=== PATIENT | female | born 1995 | race Caucasian/White ===

== ENCOUNTER 2019-01-27 16:24 | Emergency (ER) | payer OTHER ==
[~2019-01-27] VITALS: Ht 149.9 cm; Wt 65.5 kg
[2019-01-27 16:30] VITALS: Ht 149.9 cm; Wt 65.5 kg
--- NOTE | 2019-01-27 16:42 | ERD ---
ER Documentation Chief Complaint Chief Complaint pt is 16 weeks , c/o cramping with n/v x 1 day HPI 23-year-old female, 16 weeks , presents to the emergency department, complaining of 1 day with intermittent pelvic cramping, associated with nausea and vomiting. ROS All systems reviewed and are negative except as per history of present illness. Medications Home Meds Active Scripts Acetaminophen* (Tylenol*) 325 Mg Tablet, 2 TAB PO Q6 PRN for PAIN AND OR ELEVAT ED TEMP, #20 TAB Prov:LUIS M MOORE MD 01/27/19 Cephalexin* (Keflex*) 500 Mg Capsule, 500 MG PO QID for 7 Days, CAP Prov:LUIS M MOORE MD 01/27/19 Allergies Allergies: Coded Allergies: No Known Allergy (Unverified , 01/27/19) FmHx Family History: No diabetes, No coronary disease Physical Exam Vitals Vital Signs Date Temp Pulse Resp B/P (MAP) Pulse Ox O2 O2 Flow FiO2 Time Delivery Rate 01/27/19 97.9 81 16 99/62 (74) 99 Room Air 20:02 01/27/19 97.9 90 16 103/63 99 16:30 (76) Physical Exam Const: No acute distress Head: Atraumatic Eyes: Normal Conjunctiva ENT: Normal External Ears, Nose and Mouth. Neck: Full range of motion. No meningismus. Resp: Clear to auscultation bilaterally Cardio: Regular rate and rhythm, no murmurs Abd: Soft, non tender, non distended. Normal bowel sounds Skin: No petechiae or rashes Back: No midline or flank tenderness Ext: No cyanosis, or edema Neur: Awake and alert Psych: Normal Mood and Affect Result Diagram: 01/27/19 1713 01/27/19 1713 Results 24 hrs Laboratory Tests Test 01/27/19 17:13 White Blood Count 10.7 10^3/ul Red Blood Count 4.05 10^6/ul Hemoglobin 11.5 g/dl Hematocrit 34.7 % Mean Corpuscular Volume 85.7 fl Mean Corpuscular Hemoglobin 28.4 pg Mean Corpuscular Hemoglobin Concent 33.1 g/dl Red Cell Distribution Width 13.7 % Platelet Count 251 10^3/UL Mean Platelet Volume 10.3 fl Immature Granulocytes % 0.500 % Neutrophils % 68.3 % Lymphocytes % 22.0 % Monocytes % 7.7 % Eosinophils % 0.8 % Basophils % 0.7 % Nucleated Red Blood Cells % 0.0 /100WBC Immature Granulocytes # 0.050 10^3/ul Neutrophils # 7.3 10^3/ul Lymphocytes # 2.4 10^3/ul Monocytes # 0.8 10^3/ul Eosinophils # 0.1 10^3/ul Basophils # 0.1 10^3/ul Nucleated Red Blood Cells # 0.0 10^3/ul Urine Color YELLOW Urine Clarity SLIGHTLY CLOUDY Urine pH 7.0 Urine Specific [place] 1.019 Urine Ketones NEGATIVE mg/dL Urine Nitrite NEGATIVE mg/dL Urine Bilirubin NEGATIVE mg/dL Urine Urobilinogen NEGATIVE mg/dL Urine Leukocyte Esterase TRACE Taras/ul Urine Microscopic RBC 1 /HPF Urine Microscopic WBC 8 /HPF Urine Squamous Epithelial Cells MODERATE /HPF Urine Bacteria FEW /HPF Urine Mucus FEW /HPF Urine Hemoglobin NEGATIVE mg/dL Urine Glucose NEGATIVE mg/dL Urine Total Protein NEGATIVE mg/dl Sodium Level 140 mmol/L Potassium Level 4.0 mmol/L Chloride Level 110 mmol/L Carbon Dioxide Level 22 mmol/L Anion Gap 8 Blood Urea Nitrogen 3 mg/dl Creatinine 0.36 mg/dl Est Glomerular Filtrat Rate mL/min > 60 mL/min Glucose Level 83 mg/dl Calcium Level 9.0 mg/dl Lipase 87 U/L Current Medications Medications Dose Sig/Jake Start Time Status Last (Trade) Ordered Route PRN Stop Time Admin Dose Reason Admin Sodium 1,000 ml @ Q1H STAT 01/27/19 DC 01/27/19 Chloride 1,000 mls/hr IV 17:02 17:36 01/27/19 18:01 Ondansetron 4 mg ONCE STAT 01/27/19 DC 01/27/19 HCl (Zofran IV 17:02 17:36 Inj) 01/27/19 17:08 Morphine 1 mg ONCE STAT 01/27/19 DC 01/27/19 Sulfate IV 17:02 17:36 (morphine) 01/27/19 17:08 650 mg ONCE ONCE 01/27/19 DC 01/27/19 Acetaminophen PO 17:30 17:36 (Tylenol 01/27/19 17:31 Tab) Patient: KARON VILLEGAS : 1995 Age: 23 Sex: F MR #: [id number] DOS: 01/27/19 1702 Ordering MD: LUIS M MOORE MD Location: [facility] Room/Bed: PROCEDURE: US OB CLINICAL INDICATION: . Pelvic pain, cramping TECHNIQUE: Multiple transabdominal sonographic images of the pelvis and gravid uterus were obtained. The images were reviewed on a PACS workstation. COMPARISON: No prior studies are available for comparison. FINDINGS: Cervix: Length: 4.25 cm. Closed and competent. Gestation: Single live intrauterine gestation. Cardiac activity: 157 beats per minute. Presentation: Transverse with head toward maternal left Placenta: Location: Fundal Appearance: No previa or abruption. Amniotic Fluid: Maximum vertical pocket equals 4.5 cm. Measurements: BPD = 3.66 cm, 17 weeks 1 day HC = 13.01 cm, 16 weeks 5 days AC = 11.3 cm, 17 weeks 1 day FL = 2.28 cm, 16 weeks 6 days Gestational Age: AUA estimated gestational age: 17 weeks 0 days LMP estimated gestational age: 16 weeks 2 days AUA estimated date of delivery: 07/07/2019 The EFW = 175.53 g, 84.6 %ile based on LMP age. Bilateral maternal adnexal regions are unremarkable. The maternal left ovary is unremarkable. Color flow and spectral analysis demonstrates arterial flow in the maternal left ovary. Maternal right ovary is not seen. IMPRESSION: 1. Single live intrauterine gestation of 17 weeks 0 days by ultrasound criteria. 2. Estimated date of delivery of 07/07/2019. 3. No abnormality identified. Microbiology URINE CULTURE Preliminary Organism 1 GRAM VARIABLE RODS COLONY COUNT >100,000 CFU/ml Organism 2 MIXED GRAM POSITIVE ORGANISMS COLONY COUNT 50,000 - 60,000 CFU/ml Procedures/MDM Vital signs stable, Physical exam unremarkable. Differential diagnosis include but not limited to: UTI, threatening , incomplete versus complete , ectopic , physiologic implantation bleeding, molar . Physical examination and clinical presentation most likely consistent with UTI. During the ED course the patient remained hemodynamically stable and asymptomat ic. Results and clinical impression discussed with patient who agrees with management. The patient is stable to be treated outpatient and will be discharged home with close monitoring and follow-up in 2 days with her primary physician. The patient was instructed regarding the outcomes and the potential complications like severe bleeding and . If the patient presents severe bleeding or pain, she was instructed to return to the hospital immediately. Disclaimer: Inadvertent spelling and grammatical errors are likely due to EHR/dictation software use and do not reflect on the overall quality of patient care. Also, please note that the electronic time recorded on this note does not necessarily reflect the actual time of the patient encounter. Departure Diagnosis: Primary Impression: 16 weeks gestation of Additional Impression: UTI (urinary tract infection) Condition: Stable Additional Instructions: Muchas hamilton por [facility] para parker servicio. Esperamos que en aprker visita a la nakia de emergencia parker problema medico haya sido solucionado y que se sienta mucho mejor. Para estar seguros que parker mejoria sigue en proceso, le pedimos el favor de hacer abhi rena de seguimiento medico con parker doctor primario en los proximos 2-4 weldon. Lleve con usted estos documentos y las medicinas recetadas. Si kenrick sintomas empeoran, NO SE ESPERE, por favor regrese a nakia de emergencia INMEDIATAMENTE. En sher que usted no tenga un mdico de atencin primaria: Llame al mdico o clnica comunitaria de referencia que aparece abajo tiesha las horas de consultorio para hacer abhi rena para que le vean. CLINICAS: [facility] [phone] [facility] [phone] [facility] [phone] [facility] [phone] [facility] [phone] [facility]. [phone] MD Jan 27, 2019 16:42
[2019-01-27] MEDS ORDERED: morphine 2 MG INJ IV STA (17:02)
[2019-01-27] MEDS ORDERED: SOD CHLORIDE 0.9% 1,000 ML IV STA (17:02)
[2019-01-27] MEDS ORDERED: ONDANSETRON 4 MG INJ IV STA (17:02)
[2019-01-27] MEDS ORDERED: ACETAMINOPHEN 325 MG TAB PO ONE (17:30)
[2019-01-27] MEDS ORDERED: ACET325T33 PO (19:35)
[2019-01-27] MEDS ORDERED: CEPH-443 PO (19:35)
[2019-01-27 20:02] VITALS: BP 99/62; PULSE 81; RESP 16
[2019-01-30] MEDS ORDERED: METO10TA92 PO (03:14)
[2019-01-30] MEDS ORDERED: PREN-93 PO (03:14)
[2019-01-30] MEDS ORDERED: ACET500C5 PO (03:15)
== END 2019-01-27 20:03 | disposition home or self-care (01) ==
LOC: FTE 16:24
DX: O23.42 Unspecified infection of urinary tract in pregnancy, second trimester (principal); Z3A.17 17 weeks gestation of pregnancy
CPT/HCPCS: 36415; 76805; 80048; 81001; 83690; 85025; 87086; 96361; 96374; 96375; J2270; J2405; J7030; Z7502; Z7610

== ENCOUNTER 2019-01-30 00:16 | Emergency (ER) | payer OTHER ==
[~2019-01-30] VITALS: Ht 149.9 cm; Wt 65.0 kg
[~2019-01-30 00:16] MED LIST: ACET325T33 PO; ACET500C5 PO; CEPH-443 PO; METO10TA92 PO; PREN-93 PO
[2019-01-30 00:19] VITALS: Ht 149.9 cm; Wt 65.0 kg
[2019-01-30] MEDS ORDERED: ACETAMINOPHEN 500 MG TAB PO STA (01:05)
--- NOTE | 2019-01-30 01:05 | ERD ---
ER Documentation Chief Complaint Chief Complaint abdominal pain/cramps x 1 hour, states 15 weeks , denies vb HPI This is a 23-year-old female who presents here in the emergency department with complaints of pelvic pain that started yesterday. Stated that she vomited multiple times with nonbilious and nonbloody emesis in the last 24 hours. LMP: 09/28/2017. BRUCE: 07/12/2019. M1. Denies headache, head injury, loss of consciousness, dizziness, neck pain, neck stiffness, throat pain, difficulty swallowing, difficulty breathing lying flat, shoulder pain, chest pain, back pain, abdominal pain, nausea, constipation, diarrhea, urinary symptoms, or possibility being , loss of bowel and bladder control, trauma, injury, falls, difficulty walking due to pain, numbness or tingling sensation, calf pain, recent travel, recent major surgery in the last 3 weeks, calf pain, recent long travel, recent exposure to any illness, recent antibiotic use in the last 3 months, fever, chills, seizures. Past medical history: Denies. Medication: vitamins. Surgical history: Denies. Social: Denies smoking, use of alcoholic beverages, use of illegal drugs. ROS All systems reviewed and are negative except as per history of present illness. Medications Home Meds Active Scripts Acetaminophen* (Tylophen*) 500 Mg Capsule, 1 CAP PO Q6H PRN for PAIN AND OR ELEVATED TEMP, #20 CAP Prov:RA CHILDERS 01/30/19 Vit No.124/Iron/FA ( Vitamin Tablet) 1 Each Tablet, 1 EACH PO DAILY, #30 TAB Prov:RA CHILDERS 01/30/19 Metoclopramide* (Reglan*) 10 Mg Tablet, 10 MG PO Q6 PRN for NAUSEA AND/OR VOMITING, #20 TAB Prov:RA CHILDERS 01/30/19 Acetaminophen* (Tylenol*) 325 Mg Tablet, 2 TAB PO Q6 PRN for PAIN AND OR ELEVATED TEMP, #20 TAB Prov:LUIS M MOORE MD 01/27/19 Cephalexin* (Keflex*) 500 Mg Capsule, 500 MG PO QID for 7 Days, CAP Prov:LUIS M MOORE MD 01/27/19 Allergies Allergies: Coded Allergies: No Known Allergy (Unverified , 7/26/19) PMhx/Soc Medical and Surgical Hx: pt denies Medical Hx, pt denies Surgical Hx History of Surgery: No Anesthesia Reaction: No Hx Neurological Disorder: No Hx Respiratory Disorders: No Hx Cardiac Disorders: No Hx Psychiatric Problems: No Hx Miscellaneous Medical Probl: No Hx Alcohol Use: No Hx Substance Use: No Hx Tobacco Use: No Smoking Status: Never smoker Physical Exam Vitals Physical Exam Const: No acute distress Head: Atraumatic Eyes: Normal Conjunctiva. ENT: Normal External Ears, Nose and Mouth. Neck: Full range of motion. No meningismus. Resp: Clear to auscultation bilaterally Cardio: Regular rate and rhythm, no murmurs Abd: Soft, non tender, non distended. Normal bowel sounds. Negative Rdz sign. Negative Jayde sign (heel jar test). Negative psoas sign. Negative Rovsing sign. Able to jump 10 times without developing lower abdominal pain. No CVA tenderness. Ambulatory with steady gait and without pain to abdomen. Skin: No petechiae or rashes. Color appears normal for ethnicity. No skin tenting. No signs of severe dehydration. Back: No midline or flank tenderness Ext: No cyanosis, or edema Neur: Awake and alert. No neurological deficits. Psych: Normal Mood and Affect Results 24 hrs Laboratory Tests Test 01/30/19 00:24 01/30/19 01:29 Urine Color YELLOW Urine Clarity CLOUDY Urine pH 7.0 Urine Specific [place] 1.013 Urine Ketones NEGATIVE mg/dL Urine Nitrite NEGATIVE mg/dL Urine Bilirubin NEGATIVE mg/dL Urine Urobilinogen NEGATIVE mg/dL Urine Leukocyte Esterase NEGATIVE Taras/ul Urine Microscopic RBC 1 /HPF Urine Microscopic WBC 3 /HPF Urine Squamous Epithelial Cells FEW /HPF Urine Amorphous Crystals FEW /HPF Urine Hemoglobin NEGATIVE mg/dL Urine Glucose NEGATIVE mg/dL Urine Total Protein NEGATIVE mg/dl White Blood Count 10.5 10^3/ul Red Blood Count 4.28 10^6/ul Hemoglobin 12.2 g/dl Hematocrit 36.7 % Mean Corpuscular Volume 85.7 fl Mean Corpuscular Hemoglobin 28.5 pg Mean Corpuscular Hemoglobin Concent 33.2 g/dl Red Cell Distribution Width 13.8 % Platelet Count 271 10^3/UL Mean Platelet Volume 11.0 fl Immature Granulocytes % 0.400 % Neutrophils % 58.0 % Lymphocytes % 30.3 % Monocytes % 9.3 % Eosinophils % 1.4 % Basophils % 0.6 % Nucleated Red Blood Cells % 0.0 /100WBC Immature Granulocytes # 0.040 10^3/ul Neutrophils # 6.1 10^3/ul Lymphocytes # 3.2 10^3/ul Monocytes # 1.0 10^3/ul Eosinophils # 0.2 10^3/ul Basophils # 0.1 10^3/ul Nucleated Red Blood Cells # 0.0 10^3/ul Sodium Level 138 mmol/L Potassium Level 3.8 mmol/L Chloride Level 105 mmol/L Carbon Dioxide Level 25 mmol/L Anion Gap 8 Blood Urea Nitrogen 6 mg/dl Creatinine 0.42 mg/dl Est Glomerular Filtrat Rate mL/min > 60 mL/min Glucose Level 81 mg/dl Calcium Level 10.0 mg/dl Total Bilirubin 0.3 mg/dl Direct Bilirubin 0.00 mg/dl Indirect Bilirubin 0.3 mg/dl Aspartate Amino Transf (AST/SGOT) 33 IU/L Alanine Aminotransferase (ALT/SGPT) 17 IU/L Alkaline Phosphatase 96 IU/L Total Protein 7.4 g/dl Albumin 3.8 g/dl Globulin 3.60 g/dl Albumin/Globulin Ratio 1.05 Amylase Level 88 U/L Lipase 67 U/L Beta HCG, Quantitative 89608.0 mIU/ml Current Medications Medications Dose Sig/Jake Start Time Status Last (Trade) Ordered Route PRN Stop Time Admin Dose Reason Admin Sodium 1,000 ml @ Q1H ONCE 01/30/19 DC 01/30/19 Chloride 1,000 mls/hr IV 01:30 01:49 01/30/19 02:29 10 mg ONCE ONCE 01/30/19 DC 01/30/19 Metoclopramid IV 01:30 01:49 e HCl 01/30/19 01:31 (Reglan) 500 mg ONCE STAT 01/30/19 DC 01/30/19 Acetaminophen PO 01:05 01:49 (Tylenol 01/30/19 01:09 Tab) Procedures/MDM Diagnostic tests: Urinalysis: Reviewed. Culture urine: Sent. Type and Rh: A Positive. hCG quantitative: 02579.0 Blood works: Reviewed. OB ultrasound: 1. Single live intrauterine gestation of 17 weeks 4 days by ultrasound criteria. 2. Estimated date of delivery of 07/06/2019. 3. No abnormality identified. Treatment: Saline lock. Normal saline IV bolus. Tylenol p.o. Reglan IV. Re-evaluation: Denies chest pain, back pain, abdominal pain, pelvic pain. Denies vaginal bleeding. No episode of emesis in the emergency department. Negative Rdz sign. Negative [place] sign (heel jar test). Negative psoas sign. Negative Rovsing sign. No CVA tenderness. Able to jump 5 times without developing lower abdominal pain. Ambulatory with steady gait and without pain to abdomen. No neurological deficits. Stated that she feels much better at this time and that she is ready to go home. Stated that she is comfortable to go home. Differential diagnosis I have low suspicion for sepsis, cholecystitis, diverticulitis, pancreatitis, appendicitis, ruptured appendicitis, severe electrolyte imbalance, nephrolithiasis, pyelonephritis, obstructing kidney stones, ovarian torsion, ovarian cyst rupture, hemorrhaging. Final diagnosis: Pelvic pain in . Vomiting . Prescription: Reglan. Tylenol. vitamins. Follow-up with OB in the next 24-48 hours. Come back here in the emergency department for any new symptoms or any worsening symptoms. All questions and concerns were answered. Patient and family members verbalized understanding and agreed with plan of care. Hemodynamically stable on discharge. Departure Diagnosis: Primary Impression: Vomiting Additional Impression: Pelvic pain affecting in second trimester, antepartum Condition: Stable Additional Instructions: Follow-up with OB in the next 24-48 hours. Come back here in the emergency department for any new symptoms or any worsening symptoms. RA CHILDERS Jan 30, 2019 01:05
[2019-01-30] MEDS ORDERED: SOD CHLORIDE 0.9% 1,000 ML IV ONE (01:30)
[2019-01-30] MEDS ORDERED: METOCLOPRAMIDE 10 MG INJ IV ONE (01:30)
[2019-01-30 03:48] VITALS: BP 93/56; PULSE 85; RESP 18
== END 2019-01-30 03:48 | disposition home or self-care (01) ==
LOC: FTE 00:16
DX: O21.9 Vomiting of pregnancy, unspecified (principal); R10.2 Pelvic and perineal pain; Z3A.17 17 weeks gestation of pregnancy
CPT/HCPCS: 76805; 80053; 81001; 82150; 83690; 84702; 85025; 86900; 86901; 87086; 96374; J2765; J7030; Z7502; Z7610